=== PATIENT | female | born 1930 | race Caucasian/White ===

== ENCOUNTER 2020-01-27 17:05 | Emergency (ER) | payer OTHER ==
[~2020-01-27] VITALS: Ht 154.9 cm; Wt 48.1 kg
[2020-01-27 17:05] VITALS: BP_SYST 135
[2020-01-27 18:27] VITALS: BP_SYST 134
== END 2020-01-27 18:27 | disposition home or self-care (01) ==
LOC: SED 17:05
DX: R53.81 Other malaise (principal)
CPT/HCPCS: 99281